=== PATIENT | male | born 1975 | race Hispanic/Latino ===

== ENCOUNTER 2016-10-06 12:59 | Emergency (ER) | payer OTHER ==
[2016-10-06 13:28] VITALS: BP 153/102
[2016-10-06 14:02] LABS: Basophils % (Auto) 0.6 % (0.0-1.8); Eosinophils % (Auto) 0.4 % (0.0-4.3); Hematocrit 47.3 % (35.5-45.6); Hemoglobin 16.3 gm/dl (11.8-15.2); Mean Corpuscular HGB Conc 35 % (32-34); Mean Corpuscular Hemoglobin 29 pg (28-32); Mean Corpuscular Volume 84 fl (84-94); Platelet Count 367 K/mm3 (140-440); Red Blood Count 5.64 M/mm3 (3.65-5.03); Red Cell Distribution Width 14.5 % (13.2-15.2); White Blood Count 15.9 K/mm3 (4.5-11.0)
--- NOTE | 2016-10-06 14:04 | XRay Report ---
ROUTINE CHEST, TWO VIEWS: HISTORY: chest pain. The trachea, heart, mediastinal contour, lung stringer and bony thorax are unremarkable. IMPRESSION: Unremarkable chest x-ray.
[2016-10-06 14:05] LABS: Anion Gap 23 mmol/L; BUN/Creatinine Ratio 11.25; Blood Urea Nitrogen 9 mg/dL (9-20); Calcium 9.7 mg/dL (8.4-10.2); Carbon Dioxide 19 mmol/L (22-30); Chloride 100.1 mmol/L (98-107); Glucose 102 mg/dL (75-100); Potassium 4.4 mmol/L (3.6-5.0); Sodium 138 mmol/L (137-145)
--- NOTE | 2016-10-10 16:46 | ED Elopement Review ---
ED Pt Elopement review - Results review Lab results: Laboratory Tests 10/06/16 10/06/16 10/06/16 13:32 13:32 16:26 WBC 15.9 H RBC 5.64 H Hgb 16.3 H Hct 47.3 H MCV 84 MCH 29 MCHC 35 H RDW 14.5 Plt Count 367 Lymph % (Auto) 14.0 [place] % (Auto) 5.4 Eos % (Auto) 0.4 Baso % (Auto) 0.6 Lymph # 2.2 [place] # 0.9 H Eos # 0.1 Baso # 0.1 Seg Neutrophils % 79.6 H Seg Neutrophils # 12.7 H Sodium 138 Potassium 4.4 Chloride 100.1 Carbon Dioxide 19 L Anion Gap 23 BUN 9 Creatinine 0.8 Estimated GFR > 60 BUN/Creatinine Ratio 11.25 Glucose 102 H Calcium 9.7 Troponin T < 0.010 < 0.010 - Call Back decision Pt Call Back Decision: Pt to F/U with PMD
== END 2016-10-06 19:40 | disposition left against medical advice (07) ==
LOC: ED 12:59
DX: R07.9 Chest pain, unspecified (principal); Z53.21 Procedure and treatment not carried out due to patient leaving prior to being seen by health care provider
CPT/HCPCS: 36415; 71020; 80048; 84484; 85025; 93005; 93010